=== PATIENT | female | born 1945 ===

== ENCOUNTER → 2020-02-16 | Outpatient (CLI) | payer OTHER ==
[~2020-02-16] MED LIST: ATOR10; DIGO.125; METO50ER; RXPROACE; WARF1; WARF2
== END | disposition home or self-care (01) ==
LOC: PLD 14:41 → LAB SHORT 14:41
DX: D48.5 Neoplasm of uncertain behavior of skin (principal)
CPT/HCPCS: 88305

== ENCOUNTER 2021-09-15 18:09 | Inpatient (IN) | payer OTHER ==
[~2021-09-15] VITALS: Ht 165.1 cm; Wt 56.8 kg
[2021-09-15 18:57] LABS: BASOPHILS ABSOLUTE AUTO 0.05 K/mm3 (0.00-0.23); BASOPHILS PERCENT AUTO 0 % (0-2); EOSINOPHILS ABSOLUTE AUTO 0.03 K/mm3 (0.00-0.68); EOSINOPHILS PERCENT AUTO 0 % (0-6); Hemoglobin 11.3 g/dL (11.5-16.0); IMMATURE GRAN ABSOLUTE AUTO 0.25 K/mm3 (0.00-0.10); IMMATURE GRAN PERCENT AUTO 2 % (0-1); LYMPHOCYTES ABSOLUTE AUTO 0.71 K/mm3 (0.84-5.20); LYMPHOCYTES PERCENT AUTO 6 % (21-46); MONOCYTES ABSOLUTE AUTO 0.25 K/mm3 (0.16-1.47); MONOCYTES PERCENT AUTO 2 % (4-13); Mean Corpuscular HGB 34.2 pg (26.0-34.0); Mean Corpuscular HGB Conc 35.3 g/dL (31.5-36.5); Mean Corpuscular Volume 97 fL (80-100); Mean Platelet Volume 12.9 fL (9.1-12.4); NEUTROPHILS ABSOLUTE AUTO 11.48 K/mm3 (1.96-9.15); NEUTROPHILS PERCENT AUTO 90 % (41-73); Platelet Count 141 K/mm3 (150-400); RDW Coefficient Variation 14.8 % (11.7-14.2); RDW Standard Deviation 52.4 fL (35.1-46.3); White Blood Cell Count 12.77 K/mm3 (4.00-11.30)
[2021-09-15] MEDS ORDERED: FOLI1 PO (19:01)
[2021-09-15] MEDS ORDERED: ATOR10 PO (19:02)
[2021-09-15] MEDS ORDERED: SPIR25 PO (19:02)
[2021-09-15] MEDS ORDERED: METO25 PO (19:02)
[2021-09-15] MEDS ORDERED: JANTOVEN2 MG PO (19:02)
[2021-09-15] MEDS ORDERED: GABA100 PO (19:02)
[2021-09-15] MEDS ORDERED: DIGOX125 MC1 PO (19:03)
[2021-09-15] MEDS ORDERED: METTREX2.5 (19:03)
[2021-09-15] MEDS ORDERED: RAMI2.5 PO (19:04)
[2021-09-15 19:15] LABS: Albumin, Blood 3.1 g/dL (3.4-5.0); Albumin/Globulin Ratio 0.8 (0.8-1.8); Bilirubin, Total 1.3 mg/dL (0.1-1.0); Bun/Creatinine Ratio 30.4 (12.0-20.0); Creatinine, Blood 3.06 mg/dL (0.40-1.00); Globulin, Blood 3.8 g/dL (2.2-4.0); Potassium, Blood 4.1 mmol/L (3.5-5.5); Total Protein, Blood 6.9 g/dL (6.4-8.2)
[2021-09-15 19:20] LABS: Source, Urine Clean Catch
[2021-09-15 19:26] LABS: Bilirubin, Urine Neg (Neg); Blood, Urine 4+ (Neg); Color, Urine Yellow (P-Yellow); Glucose Qualitative, Urine Neg (Neg); Ketones, Urine Neg (Neg); Leukocyte Esterase, Urine 3+ (Neg); Nitrite, Urine Neg (Neg); Protein, Urine 2+ (Neg); Urobilinogen, Urine NORM (Normal)
[2021-09-15 19:32] LABS: Appearance, Urine Hazy (Clear)
[2021-09-15 19:34] LABS: White Blood Cells, Urine 25-50 /hpf (0-5)
[2021-09-15 19:35] LABS: Bacteria Many /hpf; Red Blood Cells, Urine 0-2 /hpf (0-2); Squamous Epithelial Cells Few /hpf (Few)
[2021-09-15 19:41] LABS: Prothrombin Time Results 45.8 Sec (9.7-11.5)
[2021-09-15 19:45] LABS: International Normalized Ratio 4.84
[2021-09-15 22:11] LABS: Magnesium, Blood 1.9 mg/dL (1.6-2.4); Phosphorus, Blood 2.5 mg/dL (2.5-4.9)
[2021-09-15 22:44] LABS: Influenza A, PCR NEGATIVE (NEGATIVE); Influenza B, PCR NEGATIVE (NEGATIVE); Resp Syncytial Virus, PCR NEGATIVE (NEGATIVE); SARS-Cov-2 (COVID-19) PCR, MMC NEGATIVE (NEGATIVE)
[2021-09-16 04:29] LABS: BASOPHILS ABSOLUTE AUTO 0.04 K/mm3 (0.00-0.23); BASOPHILS PERCENT AUTO 0 % (0-2); EOSINOPHILS ABSOLUTE AUTO 0.02 K/mm3 (0.00-0.68); EOSINOPHILS PERCENT AUTO 0 % (0-6); Hemoglobin 9.9 g/dL (11.5-16.0); IMMATURE GRAN ABSOLUTE AUTO 0.31 K/mm3 (0.00-0.10); IMMATURE GRAN PERCENT AUTO 2 % (0-1); LYMPHOCYTES ABSOLUTE AUTO 1.29 K/mm3 (0.84-5.20); LYMPHOCYTES PERCENT AUTO 9 % (21-46); MONOCYTES ABSOLUTE AUTO 1.71 K/mm3 (0.16-1.47); MONOCYTES PERCENT AUTO 12 % (4-13); Mean Corpuscular HGB 34.9 pg (26.0-34.0); Mean Corpuscular HGB Conc 35.4 g/dL (31.5-36.5); Mean Corpuscular Volume 99 fL (80-100); Mean Platelet Volume 12.6 fL (9.1-12.4); NEUTROPHILS ABSOLUTE AUTO 10.47 K/mm3 (1.96-9.15); NEUTROPHILS PERCENT AUTO 76 % (41-73); Platelet Count 100 K/mm3 (150-400); RDW Coefficient Variation 14.9 % (11.7-14.2); RDW Standard Deviation 53.8 fL (35.1-46.3); Red Blood Cell Count 2.84 M/mm3 (3.80-5.20); White Blood Cell Count 13.84 K/mm3 (4.00-11.30)
[2021-09-16 04:53] LABS: Albumin, Blood 2.5 g/dL (3.4-5.0); Albumin/Globulin Ratio 0.8 (0.8-1.8); Bilirubin, Total 0.8 mg/dL (0.1-1.0); Bun/Creatinine Ratio 30.9 (12.0-20.0); Calcium, Blood 7.5 mg/dL (8.5-10.1); Creatinine, Blood 2.75 mg/dL (0.40-1.00); Globulin, Blood 3.2 g/dL (2.2-4.0); Potassium, Blood 4.5 mmol/L (3.5-5.5); Total Protein, Blood 5.7 g/dL (6.4-8.2)
[2021-09-16 04:55] LABS: Prothrombin Time Results 48.5 Sec (9.7-11.5)
[2021-09-16 04:58] LABS: International Normalized Ratio 5.14
--- NOTE | 2021-09-16 06:10 | NUR ---
SHIFT SUMMARY PT ALERT AND ORIENTED X4. PLEASANT AND COOPERATIVE TO CARE. ASSUMED CARE AT 2311, ER ADMIT. BP STABLE, ON RA SATS OVER 95%. AFEBRILE. AFIB 70-110'S. ON CONTACT PRECAUTIONS FOR C.DIFF. NS RUNNING AT 125 MLS/HR. CRITICAL INR OF 5.14. HOSPITALIST AWARE, WILL HOLD WARFARIN. ABLE TO AMBULATE WITH X1 ASSIST TO BEDSIDE COMMODE. IN BED SLEEPING WITH CALL ALARM AT SIDE, CONTINUE TO MONITOR UNTIL REPORT GIVEN TO DAYSHIFT RN
--- NOTE | 2021-09-16 10:58 | NUR ---
AM NOTE PT RESTING IN BED THIS AM, ALERT, ORIENTED x4; CALM AND COOPERATIVE WITH CARE. PT REPORTS PAIN TO LEFT HIP. PT DENIES CHEST PAIN, SOB, NAUSEA AND DIZZINESS. TELE AFIB 80-90'S, BP SOFT BUT STABLE. NOTIFED DR SANTAMARIA OF BP 97/52; NEW ORDERS TO HOLD METOPROLOL FOR SYSTOLIC BP LESS THAN 100. SPO2>95% ON RA; LS DIM T/O, BREATHIGN EVEN AND UNLABORED. BS NORMOACTIVE x4 QUAD; ABD SOFT, TENDER. NO BM NOTED SINCE ADMISSION. POWERGLIDE PLACED TO [place]. OTHER VSS. NO OTHER ACUTE CHANGES NOTED. WILL CONTINUE TO MONITOR.
--- NOTE | 2021-09-16 17:31 | NUR ---
SHIFT SUMMARY ELEVATED TEMP THIS EVENING, 100.7; TYLENOL ADMINISTERED AND BLANKETS REMOVED, WASH CLOTH GIVEN FOR FOREHEAD; NOITIFED DR SANTAMARIA, NO NEW ORDERS. POSITIVE BLOOD CULTURES x2; NOTIFIED DR SANTAMARIA, NEW ORDER FOR 2GM ROCEPHINE IV DAILY START NOW. PT APPEAR TO BE RESTING T/O SHIFT, UP TO BATHROOM WITH 1 PERSON ASSIST WITH IV POLE. NO BM NOTED DURING SHIFT. TELE AFIB 80-120'S, OCCASIONALLY TOUCHING 130-140 WITH ACTIVITY; BP STABLE. OTHER VSS. NO OTHER ACUTE CHANGES NOTED. WILL CONTINUE TO MONITOR.
[2021-09-17 04:56] LABS: Prothrombin Time Results 52.7 Sec (9.7-11.5)
[2021-09-17 05:06] LABS: International Normalized Ratio 5.62
--- NOTE | 2021-09-17 05:21 | NUR ---
SHIFT SUMMARY PT ALERT AND ORIENTED X4. AFEBRILE. ON RA SATS OVER 93%. HR AFIB 80-120'S. BP STABLE. C/O BACK PAIN, MEDICATED PER EMAR AND REPOSITIONING. NS RUNNING AT 125ML/HR. AMBULATING TO BEDSIDE COMMODE WITH X1 ASSIST. IN BED SLEEPING WITH CALL ALARM AT SIDE. WILL CONTINUE TO MONITOR UNTIL REPORT GIVEN TO DAYSHIFT RN
[2021-09-17 08:33] LABS: Hematocrit 28.8 % (33.0-51.0); Mean Corpuscular HGB Conc 34.7 g/dL (31.5-36.5); Mean Corpuscular Volume 98 fL (80-100); Mean Platelet Volume 12.6 fL (9.1-12.4); Platelet Count 86 K/mm3 (150-400); RDW Coefficient Variation 15.2 % (11.7-14.2); RDW Standard Deviation 54.4 fL (35.1-46.3); Red Blood Cell Count 2.94 M/mm3 (3.80-5.20); White Blood Cell Count 9.98 K/mm3 (4.00-11.30)
[2021-09-17 08:35] LABS: Albumin, Blood 2.5 g/dL (3.4-5.0); Anion Gap 6 mmol/L (6-16); Blood Urea Nitrogen 53 mg/dL (8-24); Bun/Creatinine Ratio 31.7 (12.0-20.0); CO2, Blood 20 mmol/L (21-32); Calcium, Blood 7.6 mg/dL (8.5-10.1); Chloride, Blood 109 mmol/L (98-108); Creatinine, Blood 1.67 mg/dL (0.40-1.00); Glomerular Filtration Rate 30 (60-); Glucose, Blood 135 mg/dL (70-99); Magnesium, Blood 1.8 mg/dL (1.6-2.4); Phosphorus, Blood 2.2 mg/dL (2.5-4.9); Potassium, Blood 4.2 mmol/L (3.5-5.5); Sodium, Blood 135 mmol/L (136-145)
[2021-09-17 08:48] LABS: Calcium, Blood 7.8 mg/dL (8.5-10.1); Creatinine, Blood 1.69 mg/dL (0.40-1.00); Potassium, Blood 4.2 mmol/L (3.5-5.5)
[2021-09-17 09:35] LABS: BAND PERCENT MAN 10 % (0-8); BASOPHILS ABSOLUTE MAN 0.09 K/mm3 (0.00-0.23); BASOPHILS PERCENT MAN 1 % (0-2); EOSINOPHILS PERCENT MAN 0 % (0-6); LYMPHOCYTES ABSOLUTE MAN 1.09 K/mm3 (0.84-5.20); LYMPHOCYTES PERCENT MAN 11 % (21-46); MONOCYTES ABSOLUTE MAN 0.39 K/mm3 (0.16-1.47); MONOCYTES PERCENT MAN 4 % (4-13); NEUTROPHILS ABSOLUTE MAN 8.38 K/mm3 (1.96-9.15); SEG NEUTROPHILS PERCENT MAN 74 % (41-73); TOTAL CELLS COUNTED 100
[2021-09-17] MEDS ORDERED: ALLO300 PO (11:27)
--- NOTE | 2021-09-17 18:03 | NUR ---
SHIFT SUMMARY PATIENT IS ALERT AND ORIENTED; SHE IS CALM AND COOPERATIVE WITH CARE. SHE IS A STANDBY ASSIST AND USES BEDSIDE COMMODE. TELE AFIB 80'S, BP STABLE, LUNG SOUNDS CLEAR AT UPPER LOBES AND DIMINISHED AT LOWER LOBES. PATIENT HAS BEEN C/O OF WORSENING GENERANLIZED ACHES&PAINS ONSET OF ADMISSION, WILL USE FLAC SCALE NEEDED SHE HAS A HARD TIME RATING IT ON A NUMERICAL SCALE AT TIMES. PATIENT HAS BEEN RECEIVING PRN TYLENOL AND TRAMADOL PER ORDERS. PATIENT DENIES CHEST PAIN/PRESSURE, SOB, NAUSEA, DIZZINESS AND/OR NUMBNESS/TINGLING. ECHO WAS PERFORMED AT BEDSIDE TODAY, PLANS FOR RENATA ECHO TOMORROW AM W DR WHITMORE. PATIENT IS RECEIVING IV ABX. VSS. NO O THER ACUTE CHANGES, WILL CONTINUE TO MONITOR UNTIL REPORT TO ONCOMING RN.
--- NOTE | 2021-09-17 19:21 | NUR ---
THIS RN HAS REVIEWED THE [employer] DOCUMATION AND AM IN AGREEMENT. PT A&Ox4; SBA IN ROOM. PT REPORTING PAIN T/O SHIFT. MEDICATED PER EMAR. PLANS FOR NPO AT MIDNIGHT FOR PLANNED RENATA IN AM. DR WHITMORE AT BEDSIDE THIS EVENING TO DISCUSS PROCEDURE AND CONSENT PT. NO OTHER ACUTE CHANGES. REPORT GIVEN TO ONCOMING RN.
[2021-09-17 22:57] LABS: Source, Urine Foley catheter
[2021-09-17 23:01] LABS: Bilirubin, Urine Neg (Neg); Blood, Urine 1+ (Neg); Glucose Qualitative, Urine Neg (Neg); Ketones, Urine Neg (Neg); Leukocyte Esterase, Urine Neg (Neg); Nitrite, Urine Neg (Neg); Protein, Urine 2+ (Neg); Urobilinogen, Urine NORM (Normal)
[2021-09-17 23:36] LABS: Appearance, Urine Clear (Clear); Color, Urine Yellow (P-Yellow)
[2021-09-17 23:37] LABS: Bacteria Few /hpf; Red Blood Cells, Urine 0-2 /hpf (0-2); Squamous Epithelial Cells Few /hpf (Few); White Blood Cells, Urine 0-2 /hpf (0-5)
--- NOTE | 2021-09-17 23:38 | NUR ---
RETENTION PATIENT ATTEMPTING TO USE BEDSIDE COMMODE x2 AND WAS UNSUCCESSFUL BOTH TIMES. PATIENT ALSO REPORTING DISCOMFORT FROM NOT BEING ABLE TO VOID. THIS RN TO BLADDER SCAN PATIENT. BLADDER SCAN SHOWS 600mls. CALL PLACED TO HOSPITALIST. ORDER FOR MCKNIGHT RECIEVED. MCKNIGHT PLACED, UA SENT. PATIENT TOLERATED PROCEDURE WELL. MCKNIGHT DRAINING CLEAR YELLOW URINE TO GRAVITY. PATIENT REPORTING RELIEF OF DISCOMFORT AFTER MCKNIGHT PLACED.
[2021-09-18 04:28] LABS: BASOPHILS ABSOLUTE AUTO 0.05 K/mm3 (0.00-0.23); BASOPHILS PERCENT AUTO 0 % (0-2); EOSINOPHILS ABSOLUTE AUTO 0.04 K/mm3 (0.00-0.68); EOSINOPHILS PERCENT AUTO 0 % (0-6); Hemoglobin 9.8 g/dL (11.5-16.0); IMMATURE GRAN ABSOLUTE AUTO 0.38 K/mm3 (0.00-0.10); IMMATURE GRAN PERCENT AUTO 3 % (0-1); LYMPHOCYTES ABSOLUTE AUTO 0.95 K/mm3 (0.84-5.20); LYMPHOCYTES PERCENT AUTO 8 % (21-46); MONOCYTES ABSOLUTE AUTO 1.12 K/mm3 (0.16-1.47); MONOCYTES PERCENT AUTO 10 % (4-13); Mean Corpuscular Volume 97 fL (80-100); Mean Platelet Volume 12.3 fL (9.1-12.4); NEUTROPHILS PERCENT AUTO 78 % (41-73); Platelet Count 110 K/mm3 (150-400); RDW Coefficient Variation 15.7 % (11.7-14.2); RDW Standard Deviation 55.3 fL (35.1-46.3); Red Blood Cell Count 2.88 M/mm3 (3.80-5.20); White Blood Cell Count 11.64 K/mm3 (4.00-11.30)
[2021-09-18 04:50] LABS: Albumin, Blood 2.5 g/dL (3.4-5.0); Anion Gap 5 mmol/L (6-16); Blood Urea Nitrogen 39 mg/dL (8-24); Bun/Creatinine Ratio 27.7 (12.0-20.0); CO2, Blood 20 mmol/L (21-32); Chloride, Blood 112 mmol/L (98-108); Creatinine, Blood 1.41 mg/dL (0.40-1.00); Glomerular Filtration Rate 36 (60-); Glucose, Blood 119 mg/dL (70-99); Phosphorus, Blood 2.4 mg/dL (2.5-4.9); Potassium, Blood 4.5 mmol/L (3.5-5.5); Sodium, Blood 137 mmol/L (136-145)
[2021-09-18 04:54] LABS: Prothrombin Time Results 43.7 Sec (9.7-11.5)
--- NOTE | 2021-09-18 05:14 | NUR ---
SHIFT SUMMARY PATIENT ALERT AND ORIENTED x4. USES CALL LIGHT APPROPRIATLEY AND CAN MAKE NEEDS KNOWN TO STAFF. VSS, PATIENT HAS REMAINED ON RA WITH O2 SAT >90%. TELE AFIB 90s-100s. DENIES CHEST PAIN OR SOB. MCKNIGHT PLACED DURING HOT CELL TECHNICIAN, SEE PREVIOUS NOTE. PATENT AND DRAINING CLEAR YELLOW URINE TO GRAVITY. PATIENT HAS SLEPT OFF AND ON DURING THE SHIFT. MEDICATED PER EMAR FOR PAIN. NPO SINCE 0000 FOR RENATA ON DAY SHIFT. NO OTHER SIGNIFICANT CHANGES, WILL REPORT TO DAY SHIFT RN.
--- NOTE | 2021-09-18 05:18 | NUR ---
SHIFT SUMMARY COMFORT CARE PATIENT HAS SLEPT ALL SHIFT, WINCES/GROANS TO PAINFUL STIMULI BUT DOES NOT OPEN EYES TO VERBAL STIMULI. O2 IN PLACE FOR COMFORT. TURNED Q4 PER PATIENT/FAMILY REQUEST. MEDICATED PER EMAR FOR COMFORT/AIR HUNGER. REMAINED AT BEDSIDE T/O NIGHT. COMFORT CARE CART COFFEE RESTOCKED FOR FAMILY. DENIES ANY NEEDS FOR HIMSELF OR THE PATIENT AT THIS TIME. NO OTHER SIGNIFICANT CHANGES, WILL REPORT TO DAY SHIFT RN.
[2021-09-18 05:51] LABS: International Normalized Ratio 4.6
--- NOTE | 2021-09-18 08:57 | NUR ---
AM NOTE PT WAKES TO VERBAL STIMULI, ORINETED x4. PT TEARFUL AT TIMES, APPEARS ANXIOUS DENIES NEEDS FOR MEDICATION AT THIS TIME. PT DENIES PAIN, CHEST PAIN, SOB, NAUSEA AND DIZZINESS AT THIS TIME. TELE AFIB 90-110'S; BP STABLE. LS CLEAR, DIM IN BASES, SPO2 >90% ON RA. PT BS NORMOACTIVE, SOFT, TENDER. BLE TRACE EDEMA NOTED. MCKNIGHT IN PLACE DUE TO RETENTION; PATENT AND DRAINING. PT REMAINS NPO FOR PLANS RENATA THIS AM. DR SANTAMARIA AT BEDSIDE THIS MORNING. VSS. NO OTHER ACUTE CHANGES. WILL CONTINUE TO MONITOR.
--- NOTE | 2021-09-18 13:08 | NUR ---
PT FAMILY CALLED OUT FOR ASSISTANCE, THIS RN TO ROOM, PT SITTING UP IN BED MOANING, CLUTCHING CHEST, COUGHING. PT UNABLE TO DESCRIBE WHAT WAS WRONG, VERBALLIZING "SOMETHING IS WRONG". PT COUGHING UP THICK WHITE SPUTUM. BP 126/86, HR 120-140'S, RESP RATE 20-24 SPO2 96-97% ON RA. PER TELE PT HAD 4 SECOND PAUSE, STRIP IN CHART; NOTIFIED DR WHITMORE, NEW ORDER TO D/C METOPROLOL TARTRATE AND START ON LOWER DOSE TOMORROW AND DISCONTINUE DIGOXIN. PT RESTING IN BED, TELE AFIB 90-110'S, APPEARS TO BE SLEEPING. PT WAKES TO VERBAL STIMULI, QUICKLY FALLING BACK TO SLEEP.
[2021-09-18 14:16] LABS: Hematocrit 27.2 % (33.0-51.0); Hemoglobin 9.7 g/dL (11.5-16.0); Mean Corpuscular HGB 34.4 pg (26.0-34.0); Mean Corpuscular HGB Conc 35.7 g/dL (31.5-36.5); Mean Corpuscular Volume 97 fL (80-100); Mean Platelet Volume 11.7 fL (9.1-12.4); Platelet Count 124 K/mm3 (150-400); RDW Coefficient Variation 15.9 % (11.7-14.2); RDW Standard Deviation 55.8 fL (35.1-46.3); Red Blood Cell Count 2.82 M/mm3 (3.80-5.20)
[2021-09-18 14:22] LABS: Bicarbonate Venous 19.5 mmol/L (24.0-30.0); PCO2 Venous 44.1 mmHg (38-42); PO2 Venous 49.5 mmHg (38-42); pH Blood Venous 7.28 (7.34-7.37)
[2021-09-18 14:33] LABS: Bun/Creatinine Ratio 25.9 (12.0-20.0); Calcium, Blood 8.2 mg/dL (8.5-10.1); Creatinine, Blood 1.35 mg/dL (0.40-1.00)
[2021-09-18 15:00] LABS: BAND PERCENT MAN 3 % (0-8); BASOPHILS PERCENT MAN 1 % (0-2); EOSINOPHILS PERCENT MAN 0 % (0-6); LYMPHOCYTES PERCENT MAN 9 % (21-46); MONOCYTES PERCENT MAN 7 % (4-13); NEUTROPHILS ABSOLUTE MAN 8.28 K/mm3 (1.96-9.15); PLASMA CELLS PERCENT MAN 1 % (0-0); SEG NEUTROPHILS PERCENT MAN 79 % (41-73); TOTAL CELLS COUNTED 100
--- NOTE | 2021-09-18 15:54 | NUR ---
1500 RENATA PERFORMED AT THE BEDSIDE AND PATIENT TOLERATED WELL. ANESTHESIA PRESENT. BUBBLE STUDY PERFORMED. PATIENT RECOVERED IN PCU #14 AND SBAR GIVEN TO THE BEDSIDE RN. FAMILY AT THE BEDSIDE. PATIENT IS WAKING, CONFUSED, BUT THIS HER BASELINE PRIOR TO THE PROCEDURE. NO PAIN NOTED. PATIENT IS 98% ON 4L BNC.
--- NOTE | 2021-09-18 18:46 | NUR ---
THIS RN AT BEDSIDE ADMINISTERING ANTIBIOTICS. PT ATTEMPTS TO SIT UP FROM AN APPROX 30 DEGREE ANGLE, APPEARS TO BE TRYING TO COUGHT, PT TURNING RED; THIS RN SUCTIONED MOUTH, SITTING PT UP, PT STARTS COUGHING, PAUSES NOTED ON TELE, THEN HEART RATE TO 140'S, BP STABLE, SPO2 >90%, RESP RATE INCREASED WITH COUGHING. HEART RATE TRENDING DOWN, 100-110'S. DR WHITMORE NOTIFIED, NEW ORDERS FOR ATROPINE AT BEDSIDE FOR SYSTAINED BRADYCARDIA. NOTIFIED DR SANTAMARIA, NEW ORDERS FOR GUAIFENESIN CR 600 MG PO BID AND CHEST XRAY TOMORROW MORNING. WILL CONTINUE TO MONITOR.
--- NOTE | 2021-09-18 18:53 | NUR ---
SHIFT SUMMARY PT WAKING TO VERBAL STIMULI, INTERMITTENT CONFUSION NOTED. PT HAVING COUGHING EPISODES WITH PAUSES PER TELE; DR WHITMORE AND DR SANTAMARIA NOTIFIED. PT DENIES PAIN, CHEST PAIN, SOB, NAUSEA AND DIZZINESS. PT RECEIVING IV ANTIBIOTICS. DR SANTAMARIA AT BEDSIDE THIS AFTERNOON REGARDING PT DROWSINESS; NEW ORDER FOR NARCAN 0.2MG, ADMINISTERED, INCREASED ALERTNESS NOTED IN PATIENT, EYE OPEN SPONTANEIOUSLY AND ANSWERING QUESTIONS CLEARLY; CBG AND LABS. RENATA THIS AFTERNOON, RECOVERY BY GRAIN AND YEAST PLANTS SUPERVISOR RN. OTHERWISE VSS. NO OTHER ACUTE CHANGES. REPORT GIVEN TO ONCOMING RN.
--- NOTE | 2021-09-19 03:16 | NUR ---
STRICT NPO PATIENT MORE ALERT AND BECOMING RESTLESS. PATIENT REPORTED PAIN. PO TYLENOL OFFERED. PATIENT SAT UP AT 90 DEGREES, ORAL CARE PROVIDED, PATIENT ABLE TO TAKE SMALL SIP OF WATER FOR ONE 350mg TYLENOL. AFTER INSTRUCTING PATIENT TO TAKE ANOTHER SMALL SIP OF WATER BEFORE GIVING SECOND 350mg TABLET, PATIENT BEGAN COUGHING ON WATER. PATIENT IMMEDIATELY SUCTIONED AND WATER CLEARED FROM PATIENT'S MOUTH. SECOND DOSE OF TYLENOL WASTED AND PATIENT IS NOW STRICT NPO UNTIL PATIENT CAN BE REEVALUATED OR IS MORE ALERT TO PASS BEDSIDE SWALLOW EVAL. PATIENT SITTING UP IN BED WITH O2 IN PLACE. NO CHANGES TO O2 SAT, >90% ON 2L.
--- NOTE | 2021-09-19 04:00 | NUR ---
UPDATE PATIENT BECOMING INCREASINGLY FIDGETY, PULLING AT MCKNIGHT, TELE AND O2 TUBING. PATIENT CALLING AND MOANING OUT. ATTEMPT TO REDIRECT PATIENT AND REDUCTION OF STIMULI TO ASSIST WITH CALMING PATIENT DOWN. CALL PLACED TO HOSPITALIST FOR RESTRAINTS TO PROTECT LINES/TUBES. BILAT MITTS PLACED. PATIENT NO LONGER PULLING AT LINES BUT CONTINUES TO YELL OUT AND CLIMB OUT OF BED. BED ALARM ON FOR SAFETY.
[2021-09-19 04:46] LABS: Prothrombin Time Results 74.9 Sec (9.7-11.5)
[2021-09-19 06:24] LABS: International Normalized Ratio 8.19
--- NOTE | 2021-09-19 06:55 | NUR ---
SHIFT SUMMARY PATIENT ALERT, AND ANSWERS ORIENTATION QUESTIONS CORRECTLY BUT HAS BEEN YELLING/MOANING OUT DURING THE NIGHT. VSS, PATIENT ON 2L NC WITH O2 SAT >90%. NO OTHER CARDIAC PAUSES NOTED DURING THIS SHIFT. ATROPINE REMAINS AT BEDSIDE. BILATERAL MITTS IN PLACE FOR LINE/TUBE PROTECTION. PATIENT CONTINUES TO CALL OUT, SEE PREVIOUS NOTES. STRICT NPO DUE TO PATIENT COUGHING ON WATER, SEE PREVIOUS NOTES. NO OTHER SIGNIFICANT CHANGES THIS SHIFT, WILL REPORT TO DAY SHIFT RN.
[2021-09-19 07:33] LABS: Bun/Creatinine Ratio 25.2 (12.0-20.0); Calcium, Blood 8.3 mg/dL (8.5-10.1); Creatinine, Blood 1.31 mg/dL (0.40-1.00); Potassium, Blood 4.7 mmol/L (3.5-5.5)
[2021-09-19 07:38] LABS: BASOPHILS ABSOLUTE AUTO 0.03 K/mm3 (0.00-0.23); BASOPHILS PERCENT AUTO 0 % (0-2); EOSINOPHILS ABSOLUTE AUTO 0.01 K/mm3 (0.00-0.68); EOSINOPHILS PERCENT AUTO 0 % (0-6); Hematocrit 25.3 % (33.0-51.0); Hemoglobin 8.9 g/dL (11.5-16.0); IMMATURE GRAN PERCENT AUTO 2 % (0-1); LYMPHOCYTES ABSOLUTE AUTO 0.94 K/mm3 (0.84-5.20); LYMPHOCYTES PERCENT AUTO 12 % (21-46); MONOCYTES ABSOLUTE AUTO 1.04 K/mm3 (0.16-1.47); MONOCYTES PERCENT AUTO 13 % (4-13); Mean Corpuscular HGB 33.8 pg (26.0-34.0); Mean Corpuscular HGB Conc 35.2 g/dL (31.5-36.5); Mean Corpuscular Volume 96 fL (80-100); Mean Platelet Volume 12.2 fL (9.1-12.4); NEUTROPHILS ABSOLUTE AUTO 5.97 K/mm3 (1.96-9.15); NEUTROPHILS PERCENT AUTO 73 % (41-73); Platelet Count 125 K/mm3 (150-400); RDW Coefficient Variation 15.9 % (11.7-14.2); RDW Standard Deviation 55.2 fL (35.1-46.3); Red Blood Cell Count 2.63 M/mm3 (3.80-5.20); White Blood Cell Count 8.19 K/mm3 (4.00-11.30)
[2021-09-19 10:17] LABS: PCO2 Venous 33.8 mmHg (38-42); pH Blood Venous 7.37 (7.34-7.37)
--- NOTE | 2021-09-19 10:53 | NUR ---
NURSING PCU DAYSHIFT: Assumed care of pt at approx 0700. Alert, tearful and moaning, difficulty expressing needs d/t intermittent confusion and decreased ability to enunciate. Follows some simple commands though needs demonstration and assistance. Appears anxious and forgetful though knows current location as well as oriented to self and family. BUE mitts in place d/t picking/pulling at lines. Pt tolerating well. Skin is fragile with dryness and redness noted to low back and b/l hips, scattered scabs on UE's, no breakdown noted. Tele in place, afib w/HR 120, no c/o CP though difficult to assess, click noted w/auscultation r/t mech valve, SBP 106, no noted edema, pulses palp. L/S fairly cta t/o, experiences occasional cough producing thick/arce sputum requiring oral suctioning, O2 sat upper 90's on RA, no noted dyspnea. Abd soft, mildly distended, BT+, FC in place draining yellow urine. 18g PG present in LUE, s/l at time of initial assessment. Daughter at bedside t/o the am. Seen by primary resident and attending, new d/o received. Plan of care discussed w/daughter, labs drawn, plan for head CT w/o contrast prior to 1130, NS ordered to begin at 75mls/hr. No s/s of acute distress. Pt appears to be resting comfortably at this time after bedbath, linen change, a.m. and oral care. Call light in reach of family member, cont to monitor for any changes.
--- NOTE | 2021-09-19 13:36 | NUR ---
NURSING PCU DAYSHIFT: At approx 1218, pt experienced >15 sec pause, followed by gagging/coughing, reddened complextion, dyspnea, and vertical nystagmus. Rhythm returned to afib w/HR 110-130 after pause. Pt noted to be more somnolent for approx 5-10 minutes post episode. At approx 1244, pt experienced another pause of >10 sec with the same post episode symptoms. Resident notified of initial event, new d/o received for cardiology consult. Call placed to Dr. Hong, new d/o received. Vp Integration and attending at bedside for assessment and to discuss new plan of care. Pt scheduled for temp pacer in HC after 2 units of FFP infuse. Will xfer to ICU post procedure, rpt to be given to accepting RN. Daughter and additional family remain at bedside. Plan for COBRA xfer after temp pacer placement, awaiting bed. Continue to monitor until pt transfer to [facility].
--- NOTE | 2021-09-19 15:00 | NUR ---
Notified Natacha bernstein that pt will be transferred to [facility] after [facility] puts in a temporary pacer. the pt is leaving to go to heart center now.
--- NOTE | 2021-09-19 15:15 | NUR ---
Pt in the heart center for temporary pacemaker placement. Upper dentures were found in her room, labeled with her hospital sticker and taken to the heart center. Placed inside the [facility] folder packet to travel with her to [facility].
--- NOTE | 2021-09-19 15:52 | NUR ---
NURSING PCU COBRA/DISCHARGE SUMMARY: Total of 3 units FFP administered. Pt to HC at approx 1530 for temp pacer placement. COBRA xfer bed assignment received. Report given to accepting RN at [facility], ambulance transport arranged to [facility] pack[facility] patient from HC at approx 1600. Family at bedside when pt transported via bed to , all questions answered, no needs identified at that time.
--- NOTE | 2021-09-19 16:08 | NUR ---
PT HAD TEMP PACER PLACED WITHOUT ISSUE, SETTINGS RATE=60, MA=10, MV=2; TEGADERM DRSG INTACT. PT TRANSFERRED FROM UNIT RECEPTIONIST TO [facility], REPORT GIVEN TO TRANSPORT CREW, ALL QUESTIONS ANSWERED. REPORT CALLED TO [facility] BY [facility].
== END 2021-09-19 15:58 | disposition short-term general hospital (02) | DRG 871 ==
LOC: ER 18:09 → PCU 21:25
PROVIDERS: Emergency Medicine; Family Medicine; Internal Medicine; Nurse Practitioner Acute Care; Pharmacist; ADMIT Internal Medicine
PROC: 3E03329 Introduction of Other Anti-infective into Peripheral Vein, Percutaneous Approach (ICD-10-PCS; principal; 2021-09-15)
PROC: 30233K1 Transfusion of Nonautologous Frozen Plasma into Peripheral Vein, Percutaneous Approach (ICD-10-PCS; 2021-09-18)
PROC: 02HK3JZ Insertion of Pacemaker Lead into Right Ventricle, Percutaneous Approach (ICD-10-PCS; 2021-09-19)
PROC: 5A1223Z Performance of Cardiac Pacing, Continuous (ICD-10-PCS; 2021-09-19)
DX: A40.8 Other streptococcal sepsis (principal); I33.0 Acute and subacute infective endocarditis; N17.9 Acute kidney failure, unspecified; I13.0 Hypertensive heart and chronic kidney disease with heart failure and stage 1 through stage 4 chronic kidney disease, or unspecified chronic kidney disease; I48.20 Chronic atrial fibrillation, unspecified; N39.0 Urinary tract infection, site not specified; E87.1 Hypo-osmolality and hyponatremia; E87.2 Acidosis; F05 Delirium due to known physiological condition; T82.6XXA Infection and inflammatory reaction due to cardiac valve prosthesis, initial encounter; Z20.822 Contact with and (suspected) exposure to COVID-19; G62.9 Polyneuropathy, unspecified; I49.5 Sick sinus syndrome; D63.1 Anemia in chronic kidney disease; R65.20 Severe sepsis without septic shock; N18.9 Chronic kidney disease, unspecified; I50.9 Heart failure, unspecified; R19.7 Diarrhea, unspecified; E86.0 Dehydration; L40.9 Psoriasis, unspecified; R79.1 Abnormal coagulation profile; B95.4 Other streptococcus as the cause of diseases classified elsewhere; Z95.2 Presence of prosthetic heart valve; Z88.1 Allergy status to other antibiotic agents; Z88.8 Allergy status to other drugs, medicaments and biological substances; Z79.01 Long term (current) use of anticoagulants; Z79.899 Other long term (current) drug therapy; Y83.1 Surgical operation with implant of artificial internal device as the cause of abnormal reaction of the patient, or of later complication, without mention of misadventure at the time of the procedure
CPT/HCPCS: 0241U; 33210; 36415; 36430; 51703; 70450; 71045; 74177; 76937; 80048; 80053; 80069; 81001; 82140; 82550; 82803; 82947; 83605; 83735; 83880; 84100; 84484; 85025; 85610; 86900; 86901; 87040; 87086; 87184; 93005; 93010; 93306; 93312; 93325; 94760; 99285-25; A9270; C1751; C1894; J0696; J2310; J2704; J7030; J7040; J7042; P9059; Q9967